=== PATIENT | male | born 1970 | race African-American/Black ===

== ENCOUNTER 2017-05-31 07:44 | Emergency (ER) | payer BC ==
[~2017-05-31] VITALS: Ht 185.4 cm; Wt 93.2 kg
[2017-05-31 08:24] VITALS: BP 132/91
== END 2017-05-31 08:24 | disposition home or self-care (01) ==
LOC: ED 07:44
DX: R07.89 Other chest pain (principal); R05 Cough

== ENCOUNTER 2017-09-23 07:46 | Emergency (ER) | payer BC ==
[~2017-09-23] VITALS: Ht 185.4 cm; Wt 96.6 kg
[2017-09-23 07:51] VITALS: Ht 185.4 cm; Wt 96.6 kg
[2017-09-23 09:29] VITALS: BP 138/104
== END 2017-09-23 09:28 | disposition home or self-care (01) ==
LOC: ED 07:46
DX: H20.011 Primary iridocyclitis, right eye (principal)